=== PATIENT | male | born 1990 | race Caucasian/White ===

== ENCOUNTER 2020-03-25 11:47 | Emergency (ER) | payer BC ==
[~2020-03-25] VITALS: Ht 172.7 cm; Wt 100.0 kg
[~2020-03-25 11:47] MED LIST: LISINOPRIL10 MG PO; NORCO 325 MG-51 TA1 PO; ORPHENADRINE C100 MG PO; WELLBUTRIN XL300 M1 PO
[2020-03-25] MEDS ORDERED: NORCO 10-325 T1 EACH PO (12:48)
[2020-03-25 13:02] VITALS: BP 141/79
== END 2020-03-25 13:03 | disposition home or self-care (01) ==
LOC: ED 11:47
DX: M54.9 Dorsalgia, unspecified (principal); I10 Essential (primary) hypertension; Z87.891 Personal history of nicotine dependence; Z98.890 Other specified postprocedural states
CPT/HCPCS: J1885; J2360